=== PATIENT | male | born 1945 | race Caucasian/White ===

== ENCOUNTER 2019-04-06 21:34 | Emergency (ER) | payer MEDICARE ==
[2019-04-06 22:03] VITALS: TEMP 98.6
--- NOTE | 2019-04-06 23:06 | ED ---
Extremity Problem HPI - General Chief complaint: Extremity Problem,Nontraumatic Stated complaint: rt leg swelling sent by home care nurse Time Seen by Provider: 04/06/19 22:38 Source: patient, RN notes reviewed, old records reviewed Mode of arrival: wheelchair Limitations: no limitations - History of Present Illness Initial comments: This is a 74-year-old male the ER for evaluation, patient presented for right lower extremity edema status post right knee replacement. Patient's postop course has been uncomplicated with follow-up exam within normal limits and healing appropriate. Patient's increasing range of motion appropriately. Reaction isn't taking medications as prescribed. No significant erythema noted to right lower extremity. Just complaining of the swelling which is noticeably increased. No drainage from surgical site. No fevers. MD Complaint: extremity pain, extremity swelling -: days(s) Location: right, lower extremity, knee History of Same: Yes -: Yes arthralgia Radiation: none Severity scale (1-10): 4 Quality: aching Consistency: constant Improves with: nothing Worsens with: nothing Review of Systems ROS Statement: Those systems with pertinent positive or pertinent negative responses have been documented in the HPI. ROS Other: All systems not noted in ROS Statement are negative. Past Medical History Past Medical History: Prostate Disorder History of Any Multi-Drug Resistant Organisms: None Reported Past Surgical History: Joint Replacement, Orthopedic Surgery Past Psychological History: No Psychological Hx Reported Smoking Status: Former smoker Past Alcohol Use History: None Reported Past Drug Use History: None Reported General Exam Limitations: no limitations General appearance: alert, in no apparent distress Head exam: Present: atraumatic, normocephalic, normal inspection Eye exam: Present: normal appearance, PERRL, EOMI. Absent: scleral icterus, conjunctival injection, periorbital swelling ENT exam: Present: normal exam, mucous membranes moist Neck exam: Present: normal inspection. Absent: tenderness, meningismus, lymphadenopathy Respiratory exam: Present: normal lung sounds bilaterally. Absent: respiratory distress, wheezes, rales, rhonchi, stridor Cardiovascular Exam: Present: regular rate, normal rhythm, normal heart sounds. Absent: systolic murmur, diastolic murmur, rubs, gallop, clicks GI/Abdominal exam: Present: soft, normal bowel sounds. Absent: distended, tenderness, guarding, rebound, rigid Extremities exam: Present: normal inspection, full ROM, normal capillary refill. Absent: tenderness, pedal edema, joint swelling, calf tenderness Back exam: Present: normal inspection Neurological exam: Present: alert, oriented X3, CN II-XII intact Psychiatric exam: Present: normal affect, normal mood Skin exam: Present: warm, dry, intact, normal color. Absent: rash Course Vital Signs 04/06/19 04/06/19 21:57 22:03 Temperature 98.6 F Pulse Rate 65 58 L Respiratory 16 18 Rate Blood Pressure 147/76 132/66 O2 Sat by Pulse 99 99 Oximetry Medical Decision Making - Medical Decision Making 74 male the ER for evaluation. Presents today for evaluation regards to right lower Shorty swelling, ultrasound negative for DVT. Patient can be discharged home, - Radiology Data Radiology results: report reviewed (Ultrasound right lower extremity negative for DVT), image reviewed Disposition Clinical Impression: Leg edema, right, Postoperative edema Disposition: HOME SELF-CARE Condition: Good Instructions (If sedation given, give patient instructions): Leg Edema (ED) Is patient prescribed a controlled substance at d/c from ED?: No Referrals: Nonstaff,Physician [Primary Care Provider] - 1-2 days
--- NOTE | 2019-04-06 23:36 | US ---
EXAM: US Duplex Right Lower Extremity Veins CLINICAL HISTORY: Right knee replacement 03/30/19, right leg pain and edema TECHNIQUE: The lower extremity deep venous system is examined utilizing real time linear array sonography with graded compression, doppler sonography and color-flow sonography. COMPARISON: No relevant prior studies available. FINDINGS: Limitations: large amount of edema, unable to visualize proximal calf vein Deep veins: No thrombus. Normal compression and normal response to augmentation. Superficial veins: Unremarkable as visualized. Soft tissues: No acute findings. IMPRESSION: No DVT. There is normal flow, compressibility, vascular waveforms.
[2019-04-06 23:53] VITALS: BP 132/66; PULSE 58; RESP 18
== END 2019-04-06 23:57 | disposition home or self-care (01) ==
LOC: EC 21:34
DX: M96.89 Other intraoperative and postprocedural complications and disorders of the musculoskeletal system (principal); Z87.891 Personal history of nicotine dependence; Z96.651 Presence of right artificial knee joint
CPT/HCPCS: 99284

== ENCOUNTER → 2021-02-04 | Outpatient (CLI) | payer MEDICARE ==
[2021-02-04 16:08] LABS: Basophils # (A) 0.02 X 10*3/uL (0.00-0.10); Basophils % (A) 0.3 %; Eosinophils # (A) 0.06 X 10*3/uL (0.04-0.35); Eosinophils % (A) 0.8 %; HCT 43.6 % (39.6-50.0); HGB 14.5 g/dL (13.0-17.0); Lymphocytes # (A) 1.53 X 10*3/uL (0.90-5.00); Lymphocytes % (A) 19.3 %; MCH 31.3 pg (27.0-32.0); MCHC 33.3 g/dL (32.0-37.0); Mean Platelet Volume 9.4 fL (9.5-12.2); Monocytes % (A) 7.6 %; Neutrophils # (A) 5.68 X 10*3/uL (1.80-7.70); Neutrophils % (A) 71.7 %; Platelet Count 248 X 10*3/uL (140-440); RBC 4.64 X 10*6/uL (4.40-5.60); RDW 13.4 % (11.5-14.5); WBC 7.91 X 10*3/uL (4.50-10.00)
== END | disposition home or self-care (01) ==
LOC: LABWHC1 10:11
PROVIDERS: ATTEND Nurse Practitioner Acute Care
DX: R51.9 Headache, unspecified (principal); Z51.81 Encounter for therapeutic drug level monitoring
CPT/HCPCS: 36415; 84207; 85025

== ENCOUNTER → 2021-07-24 | Outpatient (CLI) | payer MEDICARE | END | disposition home or self-care (01) | LOC: LABPAT 08:38 | PROVIDERS: ATTEND Internal Medicine Interventional Cardiology | DX: Z53.9 Procedure and treatment not carried out, unspecified reason (principal) ==

== ENCOUNTER → 2021-07-24 | Outpatient (CLI) | payer MEDICARE ==
[2021-07-24 16:51] LABS: Basophils # (A) 0.04 X 10*3/uL (0.00-0.10); Basophils % (A) 0.7 %; Eosinophils # (A) 0.06 X 10*3/uL (0.04-0.35); HCT 40.6 % (39.6-50.0); HGB 13.6 g/dL (13.0-17.0); Lymphocytes # (A) 1.33 X 10*3/uL (0.90-5.00); Lymphocytes % (A) 23.1 %; MCH 32.2 pg (27.0-32.0); MCHC 33.5 g/dL (32.0-37.0); MCV 96.2 fL (80.0-97.0); Mean Platelet Volume 9.6 fL (9.5-12.2); Monocytes % (A) 8.7 %; Neutrophils # (A) 3.82 X 10*3/uL (1.80-7.70); Neutrophils % (A) 66.2 %; Platelet Count 214 X 10*3/uL (140-440); RBC 4.22 X 10*6/uL (4.40-5.60); RDW 13.6 % (11.5-14.5); WBC 5.77 X 10*3/uL (4.50-10.00)
[2021-07-24 19:37] LABS: % Iron Saturation 25.59 (15.00-50.00)
[2021-07-24 19:45] LABS: T4, Free (Free Thyroxine) 1.1 ng/dL (0.80-1.80)
[2021-07-24 20:24] LABS: African American GFR (CKD) 95.8 (60.0-200.0); Albumin 4.2 g/dL (3.80-4.90); Anion Gap 9.4 mmol/L (4.00-12.00); BUN/Creat Ratio 23.33 Ratio (12.00-20.00); Calcium 8.9 mg/dL (8.7-10.3); Carbon Dioxide 21.6 mmol/L (21.6-31.8); Globulin 2.1 g/dL (1.6-3.3); Non-African American GFR(CKD) 82.7 (60.0-200.0); Potassium 4.7 mmol/L (3.5-5.5); Total Bilirubin 0.6 mg/dL (0.2-1.2); Total Protein 6.3 g/dL (6.2-8.2)
== END | disposition home or self-care (01) ==
LOC: LABWHC1 08:40
PROVIDERS: ATTEND Psychiatry & Neurology Neurology
DX: E53.9 Vitamin B deficiency, unspecified (principal); E55.9 Vitamin D deficiency, unspecified; G43.909 Migraine, unspecified, not intractable, without status migrainosus; I10 Essential (primary) hypertension; R41.3 Other amnesia
CPT/HCPCS: 36415; 80053; 82306; 82607; 83540; 83550; 84207; 84439; 84443; 85025

== ENCOUNTER 2021-08-12 10:46 | Day surgery (SDC) | payer MEDICARE ==
[2021-08-07 11:18] VITALS: BMI 30.7
[~2021-08-12 10:46] MED LIST: ALPRAZolam 0.25 MG TAB PO PRN; ALPRAZolam 0.5 MG TAB PO PRN; ASPIRIN 325 MG TAB PO STA; ATORVASTATIN 80 MG TAB PO STA; NITROGLYCERIN SL TABS 0.4 MG TAB SUBLINGUAL PRN; SODIUM CHLORIDE 0.9% 1,000 ML in EMPTY BAG 1 BAG IV ONE
[2021-08-12 11:50] VITALS: TEMP 97.4
[2021-08-12] MEDS ORDERED: VERAPAMIL 2.5 MG/ML 2 ML AMP ONE (12:04)
[2021-08-12] MEDS ORDERED: LIDOCAINE 1% INJ 10MG/ML (20 ML MDV) ONE (12:04)
[2021-08-12] MEDS ORDERED: fentaNYL (PF) 50 MCG/ML 2 ML AMP ONE (12:05)
[2021-08-12] MEDS ORDERED: HEPARIN SODIUM 1,000 UN/ML (10ML VL) ONE (12:11)
[2021-08-12] MEDS ORDERED: fentaNYL (PF) 50 MCG/ML 2 ML AMP IV ONE (12:17)
[2021-08-12] MEDS ORDERED: LIDOCAINE 1% INJ 10MG/ML (10 ML MDV) SQ ONE ×2 (12:22)
[2021-08-12] MEDS ORDERED: VERAPAMIL 2.5 MG/ML 4 ML VIAL INTRAARTER ONE (12:23)
[2021-08-12] MEDS ORDERED: HEPARIN SODIUM 1,000 UN/ML (10ML VL) IV ONE (12:41)
[2021-08-12 12:47] LABS: O2 Sat Blood Gas 72.4 %
[2021-08-12 12:49] LABS: O2 Sat Blood Gas 72.5 %
[2021-08-12] MEDS ORDERED: IOPAMIDOL-370 125ML BTL INJ ONE (12:50)
[2021-08-12 12:52] LABS: O2 Sat Blood Gas 93.8 %
[2021-08-12] MEDS ORDERED: RX INFO: IV CONTRAST WAS GIVEN 1 EACH MISC MISCELLANE PRN (13:11)
[2021-08-12] MEDS ORDERED: SODIUM CHLORIDE 0.9% 1,000 ML IV SCH (13:15)
[2021-08-12 14:57] VITALS: PULSE 52; RESP 16
[2021-08-12 14:58] VITALS: BP 125/66
--- NOTE | 2021-08-12 17:42 | CC ---
CARDIAC CATHETERIZATION REPORT DATE OF SERVICE: 08/12/2021 Mr. García is a 76-year-old male with history of hypertension who has been complaining of severe progressive dyspnea on exertion with presyncope. He was evaluated by Dr. Godinez, with no clear pulmonary reason. In view of that, recommendation was made regarding cardiac catheterization. The procedure, its risks and complications were discussed with the patient, who was in full understanding and agreement. PROCEDURE DESCRIPTION: Patient was brought to the laboratory helper in a fasting, semi-sedated state after receiving fentanyl and Benadryl and achieving a moderate conscious sedated state. Using Xylocaine anesthesia and Seldinger technique, a [place] sheath was introduced in the right radial artery. The intravenous catheter in the right basilic vein was exchanged for a [place] sheath over a guidewire. Subsequently right heart catheterization was performed using a [place] catheter. Multiple pressure and samples were obtained. Cardiac output by thermodilution was calculated. Following that, selective right and left coronary angiography was performed using [place] 3-1/2 bend, right and left Raquel catheters. Multiple views were taken of the arteries, including hemiaxial views. Following that, a [place] tight pigtail catheter was introduced into the left ventricle and a 30-degree ALVARADO view of the left ventricle was obtained. Following that, catheter and sheath were removed. Hemostasis was obtained with deployment of a TR band. There was no immediate complication. Patient was returned to his room in stable condition. There was no immediate complication. Of note, the patient received 5000 units of intravenous heparin as well as intra-arterial verapamil. FINDINGS: HEMODYNAMICS: Pulmonary artery saturation 72%, right atrial saturation 73%, arterial saturation 94%. Cardiac output by Maya 8.7 L/minute and by thermodilution 7.5 L/minute. Pulmonary artery systolic pressure of 32 with a diastolic of 9 and a mean of 14 mmHg. Pulmonary capillary wedge pressure: A-wave of 12, V-wave of 10 with a mean of 8 mmHg. Right ventricular systolic pressure of 34 with an end-diastolic of 4 mmHg. Right atrium A-wave of 10, V-wave of 6, with a mean of 5 mmHg. There was no gradient across the aortic valve. The left ventricular end-diastolic pressure was 15-20 mmHg. CORONARY ARTERIES: LEFT MAIN: This is a large-sized vessel bifurcating into left circumflex and left anterior artery. Left main coronary artery has no evidence of high-grade stenosis. LEFT ANTERIOR DESCENDING ARTERY: This is a large-sized vessel reaching to the apex giving rise to a large proximal diagonal branch. The left anterior descending artery is calcified proximally, has mild plaque at the diagonal branch takeoff of 10% to 20% without any evidence of high-grade stenosis. LEFT CIRCUMFLEX: This is a nondominant vessel giving rise to 3 obtuse marginal branches of small to moderate caliber. The left circumflex has no evidence of high-grade stenosis. RIGHT CORONARY ARTERY: This is a large dominant vessel bifurcating into PDA and posterolateral segment and branches. The right coronary has mild plaque of 10% to 20% without any evidence of high-grade stenosis. LEFT VENTRICULOGRAM: Left ventriculogram was performed in 30-degree ALVARADO view and revealed normal left ventricular size and systolic function, ejection fraction 55% to 60%. There was no significant mitral regurgitation. HEMODYNAMICS: There was no gradient across the aortic valve. The left ventricular end- diastolic pressure was 15-20 mmHg. CONCLUSION: 1. Mildly calcified coronary arteries. 2. Mild coronary artery disease involving the LAD and the right coronary artery. 3. Normal left ventricular size and systolic function. 4. No evidence of pulmonary hypertension. RECOMMENDATIONS: In view of findings and anatomy, I have recommended continued medical therapy with the aggressive coronary risk modifications that has been initiated. I see no evidence of significant cardiac disease to explain his symptoms of dyspnea. Those findings and recommendations were discussed with the patient and his family, who are in full understanding and agreement. Duration of sedation was 35 minutes. MMKATJA / CHRISN: [id number] /
--- NOTE | 2021-08-12 17:45 | LTR ---
August 12, 2021 To: Dr. Godinez Regarding: Navin García (45) Dear Dr. Godinez, I had the pleasure of performing cardiac catheterization on Mr. García at [facility] on August 12; a full copy of the procedure note will be forwarded to you. In brief, he was found to have no evidence of high-grade coronary artery disease with no evidence of pulmonary hypertension. At this time I will continue present medical therapy. I see no clear evidence to suggest a cardiac etiology to his progressive dyspnea on exertion. Thank you again for allowing me to participate in this patient's care. Please feel free to call with any questions. Sincerely, Lauren Batista M.D. ANA / ANNIKA: [id number] /
[2021-08-13] MEDS ORDERED: ASPIRIN 81 MG PO SCH (09:00)
[2021-08-13] MEDS ORDERED: LOSARTAN 50 MG TAB PO SCH (09:00)
[2021-08-13] MEDS ORDERED: TAMSULOSIN 0.4 MG CAP.ER.24H PO SCH (09:00)
== END 2021-08-12 16:57 | disposition home or self-care (01) ==
LOC: CATHCVL 10:46
PROVIDERS: ATTEND Internal Medicine Interventional Cardiology
DX: I25.10 Atherosclerotic heart disease of native coronary artery without angina pectoris (principal); I25.84 Coronary atherosclerosis due to calcified coronary lesion; I45.2 Bifascicular block; I35.2 Nonrheumatic aortic (valve) stenosis with insufficiency; Z79.899 Other long term (current) drug therapy; Z87.891 Personal history of nicotine dependence; Z79.82 Long term (current) use of aspirin
CPT/HCPCS: 93460; 85018; 82810; C1894; C1751; C1769; J3010; J1644; J2001; Q9967

== ENCOUNTER → 2021-08-29 | Outpatient (CLI) | payer MEDICARE ==
[2021-08-29 12:58] LABS: Chol/HDL Ratio 4.34 Ratio; HDL Cholesterol 44.2 mg/dL (40.00-60.00); LDL Cholesterol,Calculated 109.8 mg/dL (0.0-131.0)
== END | disposition home or self-care (01) ==
LOC: LABWHC1 08:07
PROVIDERS: ATTEND Internal Medicine Interventional Cardiology
DX: E78.2 Mixed hyperlipidemia (principal)
CPT/HCPCS: 36415; 80061

== ENCOUNTER → 2021-09-24 | Outpatient (CLI) | payer MEDICARE ==
[2021-09-24 12:14] LABS: Chol/HDL Ratio 2.72 Ratio; HDL Cholesterol 50.4 mg/dL (40.00-60.00); LDL Cholesterol,Calculated 71.4 mg/dL (0.0-131.0); VLDL Calculation 15.2 mg/dL (5.00-40.00)
== END | disposition home or self-care (01) ==
LOC: LABWHC1 08:06
PROVIDERS: ATTEND Nurse Practitioner Adult Health
DX: E78.2 Mixed hyperlipidemia (principal)
CPT/HCPCS: 36415; 80061; 84450; 84460

== ENCOUNTER → 2021-10-19 | Outpatient (CLI) | payer MEDICARE ==
[2021-10-19 11:10] LABS: African American GFR (CKD) >90 (>60 ml/min/1.73 sqM); Blood Urea Nitrogen 25 mg/dL (9-20); Non-African American GFR(CKD) 78 (>60 ml/min/1.73 sqM)
--- NOTE | 2021-10-19 13:04 | CT ---
EXAMINATION TYPE: CT chest w con DATE OF EXAM: 10/19/2021 COMPARISON: Chest x-ray May 08, 2021 HISTORY: Lung nodules, abnormal x-ray CT DLP: 453.2 mGycm. Automated Exposure Control for Dose Reduction was Utilized. TECHNIQUE: CT scan of the thorax is performed following with IV Contrast, patient injected with 100 mL of Isovue 300. FINDINGS: LUNGS: Corresponding to x-ray there is 5 mm anterior left mid lung calcified nodule or benign granulo ma axial image 19. There is 4 to 5 mm noncalcified right lower lobe nodule axial image 36. There is 7 x 6 mm noncalcified posterior left basilar nodule axial image 49. No pleural effusion or pneumothora x seen bilaterally. Mild linear scarring and/or atelectasis in both bases. MEDIASTINUM: There are no greater than 1 cm noncalcified hilar or mediastinal lymph nodes. Prominent calcification or more likely stent at the LAD origin, correlate clinically. Heart size upper limits of normal. Moderate calcification at level of the aortic valve. No pericardial effusion is seen. OTHER: A few calcifications throughout the spleen. A few thin-walled cyst posteriorly upper to midpol e left kidney or single lobulated exophytic cyst is partially imaged. IMPRESSION: Confirmation of old granulomatous disease but few small noncalcified lower lung nodules u p to 7 x 6 mm posterior left lung base. Follow-up CT in 6-12 months time is advised to reassess as per Fleischner Society recommendations.
== END | disposition home or self-care (01) ==
LOC: RADCTMAIN 10:17
PROVIDERS: ATTEND Internal Medicine Critical Care Medicine
DX: R91.8 Other nonspecific abnormal finding of lung field (principal)
CPT/HCPCS: 82565; 84520; 71260; 36415; Q9967

== ENCOUNTER → 2022-01-07 | Outpatient (CLI) | payer MEDICARE ==
[2022-01-07 14:57] LABS: Basophils # (A) 0.05 X 10*3/uL (0.00-0.10); Basophils % (A) 0.9 %; Eosinophils # (A) 0.07 X 10*3/uL (0.04-0.35); Eosinophils % (A) 1.3 %; HCT 43.8 % (39.6-50.0); Immature Grans, Automated 0.2 %; Lymphocytes # (A) 1.46 X 10*3/uL (0.90-5.00); Lymphocytes % (A) 26.4 %; MCV 96.9 fL (80.0-97.0); Mean Platelet Volume 9.5 fL (9.5-12.2); Monocytes # (A) 0.46 X 10*3/uL (0.20-1.00); Monocytes % (A) 8.3 %; NRBC Per 100 WBC 0 /100 WBCS (0.0-0.0); Neutrophils # (A) 3.47 X 10*3/uL (1.80-7.70); Neutrophils % (A) 62.9 %; Platelet Count 230 X 10*3/uL (140-440); RBC 4.52 X 10*6/uL (4.40-5.60); RDW 13.5 % (11.5-14.5); WBC 5.52 X 10*3/uL (4.50-10.00)
[2022-01-07 15:39] LABS: % Iron Saturation 23.03 (15.00-50.00); African American GFR (CKD) 84.4 (60.0-200.0); Albumin 4.3 g/dL (3.8-4.9); Albumin/Globulin Ratio 1.79 (1.60-3.17); Anion Gap 11.4 mmol/L (10.00-18.00); BUN/Creat Ratio 23.6 Ratio (12.00-20.00); Blood Urea Nitrogen 23.6 mg/dL (9.0-27.0); Calcium 9.3 mg/dL (8.7-10.3); Carbon Dioxide 24.6 mmol/L (20.0-27.5); Globulin 2.4 g/dL (1.6-3.3); Non-African American GFR(CKD) 72.8 (60.0-200.0); Potassium 4.6 mmol/L (3.5-5.5); Total Bilirubin 0.3 mg/dL (0.30-1.20); Total Protein 6.7 g/dL (6.2-8.2)
== END | disposition home or self-care (01) ==
LOC: LABWHC1 08:30
PROVIDERS: ATTEND Psychiatry & Neurology Neurology
DX: I10 Essential (primary) hypertension (principal); E55.9 Vitamin D deficiency, unspecified; G43.909 Migraine, unspecified, not intractable, without status migrainosus; R41.3 Other amnesia
CPT/HCPCS: 36415; 80053; 82306; 82607; 83540; 83550; 84207; 85025

== ENCOUNTER → 2022-04-05 | Outpatient (CLI) | payer MEDICARE ==
[2022-04-05 07:11] LABS: ALT 28 U/L (4-49); African American GFR (CKD) 88 (>60 ml/min/1.73 sqM); Albumin 4.3 g/dL (3.5-5.0); Albumin/Globulin Ratio 1.3; Anion Gap 9 mmol/L; Blood Urea Nitrogen 26 mg/dL (9-20); Calcium 9.5 mg/dL (8.4-10.2); Carbon Dioxide 23 mmol/L (22-30); Chloride 109 mmol/L (98-107); Globulin 3.2 g/dL; Glucose 96 mg/dL (74-99); Non-African American GFR(CKD) 77 (>60 ml/min/1.73 sqM); Sodium 141 mmol/L (137-145); Total Protein 7.5 g/dL (6.3-8.2)
[2022-04-05 07:18] LABS: AST 36 U/L (17-59); Alkaline Phosphatase 69 U/L (38-126); Potassium 5.2 mmol/L (3.5-5.1)
--- NOTE | 2022-04-05 09:11 | CT ---
EXAMINATION TYPE: CT chest w con DATE OF EXAM: 04/05/2022 COMPARISON: CT dated 10/19/2021 HISTORY: lung nodule CT DLP: 669 mGycm Automated exposure control for dose reduction was used. TECHNIQUE: CT scan of the chest is performed with IV Contrast, patient injected with 100 mL of Isovue 300. FINDINGS: LUNGS: Saber-sheath trachea. Stable left lung base 7 mm nodule, the 4 mm right lower lobe nodule and the 4 mm right basal pulmonary nodule. No new or progressive lung lesion. No sizable pleural effusion or definite pneumothorax. Stable millimetric calcified granuloma at the anterior aspect of the left upper lobe. MEDIASTINUM: There are no greater than 1 cm hilar or mediastinal lymph nodes. Cardiomegaly, please co rrelate with echocardiographic results. Coronary and arterial atherosclerotic calcifications. No siz able pericardial effusion is seen. OTHER: Suspected slightly complex cyst at the posterior aspect of the left kidney, please correlate with targeted ultrasound results. Suspected scattered right renal cysts, suboptimally assessed. Fatty infiltration of the pancreas. Degenerative changes of the thoracic spine and left glenohumeral artic ulation. Previous right glenohumeral arthroplasty, not completely included in the scan. IMPRESSION: Stable scattered pulmonary nodules measuring up to 7 mm in the left lung base as described above. Rec ommend another follow up by September 2022. Suspected slightly complex cyst at the posterior aspect of the left kidney, for further targeted ultr asound assessment. Other incidental findings as described above.
[2022-04-05 23:26] LABS: Chol/HDL Ratio 4.43 Ratio; LDL Cholesterol,Calculated 134.2 mg/dL (0.0-131.0)
== END | disposition home or self-care (01) ==
LOC: RADCTMAIN 06:17
PROVIDERS: ATTEND Internal Medicine Critical Care Medicine
DX: R91.8 Other nonspecific abnormal finding of lung field (principal)
CPT/HCPCS: 80061; 80053; 71260; 36415; Q9967

== ENCOUNTER → 2022-04-20 | Outpatient (CLI) | payer MEDICARE ==
--- NOTE | 2022-04-22 08:36 | NM ---
EXAMINATION TYPE: NM DatScan Brain SPECT DATE OF EXAM: 04/20/2022 COMPARISON: NONE HISTORY: Tremor TECHNIQUE: 10 drops of Lugol's solution was administered 1 hour prior to injection as a thyroid bloc moe agent. After the administration of 4.66 mCi I-123 Ioflupane DaTscan. Images obtained 3 hours p ost injection. SPECT images of the brain were acquired with axial and coronal reconstructions. FINDINGS: Abnormal decreased uptake is seen along the striata bilaterally, decreased putamen uptake present deacon aterally IMPRESSION: Findings supportive of parkinsonian syndrome, abnormal KIA scan
== END | disposition home or self-care (01) ==
LOC: RADNMMAIN 10:40
PROVIDERS: ATTEND Psychiatry & Neurology Neurology
DX: G20 Parkinson's disease (principal)
CPT/HCPCS: 78803; A9584

== ENCOUNTER → 2022-10-14 | Outpatient (CLI) | payer MEDICARE ==
[2022-10-14 15:06] LABS: Basophils # (A) 0.05 X 10*3/uL (0.00-0.10); Basophils % (A) 0.7 %; Eosinophils # (A) 0.09 X 10*3/uL (0.04-0.35); Eosinophils % (A) 1.3 %; HCT 40.9 % (39.6-50.0); HGB 13.7 g/dL (13.0-17.0); Immature Grans, Automated 0.3 %; Lymphocytes % (A) 21.5 %; MCH 31.2 pg (27.0-32.0); MCHC 33.5 g/dL (32.0-37.0); MCV 93.2 fL (80.0-97.0); Monocytes # (A) 0.48 X 10*3/uL (0.20-1.00); Monocytes % (A) 6.9 %; NRBC Per 100 WBC 0 /100 WBCS (0.0-0.0); Neutrophils # (A) 4.84 X 10*3/uL (1.80-7.70); Neutrophils % (A) 69.3 %; Platelet Count 239 X 10*3/uL (140-440); RBC 4.39 X 10*6/uL (4.40-5.60); RDW 13.2 % (11.5-14.5); WBC 6.98 X 10*3/uL (4.50-10.00)
[2022-10-14 15:32] LABS: African American GFR (CKD) 81.8 (60.0-200.0); Albumin 4.4 g/dL (3.8-4.9); Albumin/Globulin Ratio 1.8 (1.60-3.17); Anion Gap 14.1 mmol/L (10.00-18.00); BUN/Creat Ratio 25.69 Ratio (12.00-20.00); Blood Urea Nitrogen 26.2 mg/dL (9.0-27.0); Calcium 9.4 mg/dL (8.7-10.3); Globulin 2.5 g/dL (1.6-3.3); Non-African American GFR(CKD) 70.6 (60.0-200.0); Potassium 4.7 mmol/L (3.5-5.5); Total Bilirubin 0.6 mg/dL (0.30-1.20); Total Protein 6.9 g/dL (6.2-8.2)
== END | disposition home or self-care (01) ==
LOC: LABWHC1 09:07
PROVIDERS: ATTEND Psychiatry & Neurology Neurology
DX: I10 Essential (primary) hypertension (principal); E55.9 Vitamin D deficiency, unspecified; E53.9 Vitamin B deficiency, unspecified; G43.909 Migraine, unspecified, not intractable, without status migrainosus; R41.3 Other amnesia
CPT/HCPCS: 36415; 80053; 82306; 82607; 84207; 85025

== ENCOUNTER → 2022-12-13 | Outpatient (CLI) | payer MEDICARE ==
[2022-12-13 14:59] LABS: ALT 8 U/L (10-49); AST 26 U/L (14-35); African American GFR (CKD) 83.8 (60.0-200.0); Albumin 4.3 g/dL (3.8-4.9); Albumin/Globulin Ratio 1.87 (1.60-3.17); Alkaline Phosphatase 85 U/L (41-126); Calcium 9.4 mg/dL (8.7-10.3); Carbon Dioxide 24.1 mmol/L (20.0-27.5); Chloride 108 mmol/L (96-109); Chol/HDL Ratio 3.28 Ratio; Globulin 2.3 g/dL (1.6-3.3); Glucose 89 mg/dL (70-110); LDL Cholesterol,Calculated 76.3 mg/dL (0.0-131.0); Non-African American GFR(CKD) 72.3 (60.0-200.0); Potassium 4.2 mmol/L (3.5-5.5); Sodium 143 mmol/L (135-145); Total Protein 6.6 g/dL (6.2-8.2)
== END ==
LOC: LABWHC1 08:21
PROVIDERS: ATTEND Nurse Practitioner Adult Health
DX: E78.2 Mixed hyperlipidemia (principal)
CPT/HCPCS: 36415; 80053; 80061